=== PATIENT | male | born 1995 | race Two or more races ===

== ENCOUNTER 2020-01-16 00:39 | Emergency (ER) | payer MEDICAID, OTHER ==
[~2020-01-16] VITALS: Ht 172.7 cm; Wt 118.2 kg
[~2020-01-16 00:39] MED LIST: ALBU8HFA IH
[2020-01-16] MEDS ORDERED: IPRATROPIUM BROMIDE 0.5 MG/2.5 ML NEB SOLUTION NEB ONE ×2 (01:45→03:45)
[2020-01-16] MEDS ORDERED: ALBUTEROL SULFATE 2.5 MG/0.5 ML NEB SOLUTION NEB ONE ×2 (01:45→03:45)
[2020-01-16] MEDS ORDERED: IBUPROFEN 600 MG TABLET PO ONE (01:45)
[2020-01-16] MEDS ORDERED: ACETAMINOPHEN 500 MG TABLET PO ONE (01:45)
[2020-01-16] MEDS ORDERED: 0.9% SODIUM CHLORIDE 5 ML NEB SOLUTION NEB ONE ×2 (01:48→03:48)
[2020-01-16] MEDS ORDERED: POLYMYXIN B/TRIMETHOPRIM 10 ML OPHTHALMIC SOLUTION OU ONE (02:00)
[2020-01-16] MEDS ORDERED: ALBUTEROL SULFATE HFA 90 MCG/PUFF 8 GM INHALER IH ONE (03:45)
[2020-01-16 04:24] VITALS: BP 121/77
== END 2020-01-16 04:27 | disposition home or self-care (01) ==
LOC: EMS 00:40
DX: H10.89 Other conjunctivitis (principal); J02.9 Acute pharyngitis, unspecified; B99.9 Unspecified infectious disease; J45.909 Unspecified asthma, uncomplicated
CPT/HCPCS: 87430; 94640; J3535

== ENCOUNTER 2024-07-14 21:22 | Inpatient (IN) | payer MEDICAID, OTHER ==
[~2024-07-14] VITALS: Ht 175.3 cm; Wt 121.0 kg
[~2024-07-14 21:22] MED LIST changes: +ALBU18HF12 IH; -ALBU8HFA IH; +LEVO750T68 PO; +PRED-729 PO
[2024-07-14 22:12] LABS: BASOPHILS % (AUTO) 0.4 % (0.0-2.0); EOSINOPHILS % (AUTO) 1.6 % (1.0-6.0); HEMATOCRIT 48.3 % (41-53); HEMOGLOBIN 15.6 g/dL (13.5-17.5); LYMPHOCYTES # (AUTO) 1.9 K/uL (1.0-4.8); LYMPHOCYTES % (AUTO) 11.3 % (22.0-44.0); MEAN CORPUSCULAR HEMOGLOBIN 27.2 pg (26.0-34.0); MEAN CORPUSCULAR HGB CONC 32.4 G/dL (31.0-37.0); MEAN CORPUSCULAR VOLUME 84 fL (80-100); MONOCYTES # (AUTO) 1.2 K/uL (0.1-1.0); MONOCYTES % (AUTO) 6.8 % (2.0-9.0); NEUTROPHILS # (AUTO) 13.8 K/uL (1.8-7.7); NEUTROPHILS % (AUTO) 79.9 % (40.0-70.0); PLATELET COUNT (AUTO) 245 K/uL (150-450); RED BLOOD CELL COUNT(AUTO) 5.76 MIL/uL (4.50-5.90); RED CELL DISTRIBUTION WIDTH 14.5 % (11.5-14.5); WHITE BLOOD COUNT (AUTO) 17.3 K/uL (4.5-11.0)
[2024-07-14 22:23] LABS: ANION GAP 14 mmol/L (8-16); CALCIUM, TOTAL 8.4 mg/dL (8.8-10.5); CARBON DIOXIDE 23 mmol/L (22-29); CHLORIDE 101 mmol/L (98-107); CREATININE 1.07 mg/dL (0.60-1.30); GLOMERULAR FILTR. RATE CALC > 60 mL/min (>60); GLUCOSE,RANDOM 124 mg/dL (70-110); POTASSIUM 3.5 mmol/L (3.5-5.1); SODIUM SERUM 137 mmol/L (136-145); UREA NITROGEN, BLOOD 7 mg/dL (7-18)
[2024-07-14] MEDS: SODIUM CHLORIDE 0.9% 1,000 ML IV ONE ×2 (22:46→23:59)
[2024-07-14] MEDS: PredniSONE 20 MG TABLET PO ONE (22:46)
[2024-07-14 22:50] VITALS: PULSE 133; RESP 20; O2SAT 97
[2024-07-14] MEDS: ALBUTEROL SULFATE 2.5 MG/0.5 ML NEB SOLUTION NEB ONE (22:51)
[2024-07-14] MEDS: IPRATROPIUM BROMIDE 0.5 MG/2.5 ML NEB SOLUTION NEB ONE (22:52)
[2024-07-14 22:55] VITALS: PULSE 133; RESP 23; O2SAT 94
[2024-07-14] MEDS ORDERED: 0.9% SODIUM CHLORIDE 10 ML SYRINGE IVP PRN (23:00)
[2024-07-14 23:10] VITALS: PULSE 119; RESP 22; O2SAT 100
[2024-07-14] MEDS: CefTRIAXone 1 GM/DEXTROSE 50 ML IV ONE (23:17)
[2024-07-14] MEDS: SODIUM CHLORIDE 0.9% 2,400 ML IV ONE (23:18)
[2024-07-14 23:22] LABS: INR 1.3 (0.9-1.1); PROTHROMBIN TIME 13.7 SEC (9.4-11.6)
[2024-07-14] MEDS ORDERED: ALBUTEROL SULFATE 2.5 MG/0.5 ML NEB SOLUTION NEB PRN (23:45)
[2024-07-14] MEDS ORDERED: ONDANSETRON HCL 4 MG/2 ML VIAL IVP PRN (23:45)
[2024-07-15] MEDS: AZITHROMYCIN 500 MG/NS 250 ML IV SCH (00:07)
[2024-07-15] MEDS: HEPARIN SODIUM,PORCINE 5,000 UNITS/ML VIAL SQ SCH (00:07)
[2024-07-15 00:35] LABS: APPEARANCE,URINE CLEAR (CLEAR); COLOR,URINE YELLOW (YELLOW); GLUCOSE, URINE (UA) NEGATIVE (NEGATIVE); KETONES,URINE NEGATIVE (NEGATIVE); LEUKOCYTE ESTERASE ,URINE NEGATIVE (NEGATIVE); NITRATE,URINE NEGATIVE (NEGATIVE); OCCULT BLOOD,URINE NEGATIVE (NEGATIVE); PROTEIN,URINE 100-200,SEE CONFIRM mg/dL (NEGATIVE); SPECIFIC GRAVITIY, URINE 1.024 (1.003-1.030)
[2024-07-15 00:37] LABS: COVID AG,FIA SOURCE NASAL SWAB; SARS-COV2 (COVID) ANTIGEN,FIA Negative (Negative)
[2024-07-15 00:38] LABS: INFLUENZA TYPE A NEGATIVE FOR TYPE A (NEGATIVE); INFLUENZA TYPE B NEGATIVE FOR TYPE B (NEGATIVE)
[2024-07-15 00:41] LABS: BILIRUBIN,URINE SMALL (NEGATIVE)
[2024-07-15 00:42] LABS: ALCOHOL, URINE DRUG SCREEN NEGATIVE (NEGATIVE); AMPHET/METH SCREEN,URINE NEGATIVE (NEGATIVE); BARBITURATE SCREEN, URINE NEGATIVE (NEGATIVE); BENZODIAZEPINES SCREEN,URINE NEGATIVE (NEGATIVE); CANNABINOID SCREEN,URINE NEGATIVE (NEGATIVE); COCAINE SCREEN,URINE NEGATIVE (NEGATIVE); METHADONE SCREEN, URINE NEGATIVE (NEGATIVE); OPIATE SCREEN,URINE NEGATIVE (NEGATIVE); PHENCYCLIDINE SCREEN,URINE NEGATIVE (NEGATIVE)
[2024-07-15 00:48] LABS: BACTERIA,URINE None Seen /HPF (None Seen); RBC,URINE None Seen /HPF (0-2); SQUAMOUS EPITHELIAL CELL,UR Few /LPF (None Seen); SULFOSALICYLIC ACID,URINE 2+ (Negative); WBC,URINE None Seen /HPF (0-5)
[2024-07-15] MEDS: MethylPREDNISolone SOD SUCC 125 MG/2 ML VIAL IVP SCH (04:54)
[2024-07-15] MEDS ORDERED: IOHEXOL 350 MG/ML 150 ML VIAL ONE (08:33)
[2024-07-15] MEDS ORDERED: SODIUM CHLORIDE 0.9% 100 ML ONE (08:33)
[2024-07-15 09:41] VITALS: BP 144/96; PULSE 92; RESP 20; TEMP 98.3; O2SAT 95
[2024-07-15] MEDS: DOCUSATE SODIUM 100 MG CAPSULE PO SCH (10:01)
[2024-07-15] MEDS: FAMOTIDINE 20 MG TABLET PO SCH (10:01)
[2024-07-15 11:42] VITALS: BP 140/92; PULSE 99; RESP 19; TEMP 98.3; O2SAT 96
[2024-07-15 12:21] LABS: BASOPHILS % (AUTO) 0.1 % (0.0-2.0); EOSINOPHILS % (AUTO) 0 % (1.0-6.0); HEMATOCRIT 46.4 % (41-53); HEMOGLOBIN 15.2 g/dL (13.5-17.5); LYMPHOCYTES # (AUTO) 0.6 K/uL (1.0-4.8); MEAN CORPUSCULAR HEMOGLOBIN 27.4 pg (26.0-34.0); MEAN CORPUSCULAR HGB CONC 32.7 G/dL (31.0-37.0); MEAN CORPUSCULAR VOLUME 84 fL (80-100); MONOCYTES # (AUTO) 0.2 K/uL (0.1-1.0); MONOCYTES % (AUTO) 2.5 % (2.0-9.0); NEUTROPHILS # (AUTO) 6.5 K/uL (1.8-7.7); PLATELET COUNT (AUTO) 227 K/uL (150-450); RED BLOOD CELL COUNT(AUTO) 5.54 MIL/uL (4.50-5.90); RED CELL DISTRIBUTION WIDTH 14.7 % (11.5-14.5); WHITE BLOOD COUNT (AUTO) 7.3 K/uL (4.5-11.0)
[2024-07-15 12:25] LABS: NEUTROPHILS % (AUTO) 89.4 % (40.0-70.0)
[2024-07-15 15:45] VITALS: BP 137/96; PULSE 90; RESP 19; TEMP 98.2; O2SAT 97
[2024-07-15] MEDS: SODIUM CHLORIDE 0.9% 1,000 ML IV ONE (16:39)
[2024-07-15 21:32] VITALS: BP 142/95; PULSE 88; RESP 19; TEMP 97.9; O2SAT 97
[2024-07-16 00:08] VITALS: BP 147/80; PULSE 75; RESP 18; TEMP 98.6; O2SAT 95
[2024-07-16] MEDS: CefTRIAXone 1 GM/DEXTROSE 50 ML IV SCH (00:39)
[2024-07-16 05:03] VITALS: BP 131/96; PULSE 88; RESP 19; TEMP 98.1; O2SAT 97
[2024-07-16 09:22] VITALS: BP 157/116; PULSE 95; RESP 18; TEMP 98.5; O2SAT 90
[2024-07-16 16:50] VITALS: BP 146/90; PULSE 93; RESP 18; TEMP 98.4; O2SAT 97
[2024-07-16 20:11] VITALS: BP 159/97; PULSE 104; RESP 18; TEMP 97.9; O2SAT 97
[2024-07-17] VITALS (9 sets, daily range): BP systolic 132–168; BP diastolic 87–97; PULSE 68–92; RESP 18–20; TEMP 97.9–98.9; O2SAT 95–97
[2024-07-17] MEDS ORDERED: GELATIN SPONGE,ABSORBABLE 12-7 MM TP ONE (08:12)
[2024-07-17 09:27] LABS: EOSINOPHILS % (AUTO) 0.1 % (1.0-6.0); HEMATOCRIT 47.2 % (41-53); LYMPHOCYTES # (AUTO) 0.7 K/uL (1.0-4.8); LYMPHOCYTES % (AUTO) 4.4 % (22.0-44.0); MEAN CORPUSCULAR HEMOGLOBIN 26.9 pg (26.0-34.0); MEAN CORPUSCULAR HGB CONC 31.8 G/dL (31.0-37.0); MEAN CORPUSCULAR VOLUME 85 fL (80-100); MONOCYTES # (AUTO) 0.3 K/uL (0.1-1.0); NEUTROPHILS # (AUTO) 15.1 K/uL (1.8-7.7); PLATELET COUNT (AUTO) 220 K/uL (150-450); RED BLOOD CELL COUNT(AUTO) 5.58 MIL/uL (4.50-5.90); RED CELL DISTRIBUTION WIDTH 15.1 % (11.5-14.5); WHITE BLOOD COUNT (AUTO) 16.1 K/uL (4.5-11.0)
[2024-07-17 09:35] LABS: NEUTROPHILS % (AUTO) 93.5 % (40.0-70.0)
[2024-07-17 09:43] LABS: ANION GAP 12 mmol/L (8-16); CALCIUM, TOTAL 8.5 mg/dL (8.8-10.5); CARBON DIOXIDE 23 mmol/L (22-29); CHLORIDE 104 mmol/L (98-107); CREATININE 0.83 mg/dL (0.60-1.30); GLOMERULAR FILTR. RATE CALC > 60 mL/min (>60); GLUCOSE,RANDOM 115 mg/dL (70-110); INR 1.1 (0.9-1.1); SODIUM SERUM 139 mmol/L (136-145); UREA NITROGEN, BLOOD 11 mg/dL (7-18)
[2024-07-17] MEDS: ACETAMINOPHEN 325 MG TABLET PO PRN (14:57)
[2024-07-17] MEDS: MethylPREDNISolone SOD SUCC 40 MG/ML VIAL IVP SCH (17:28)
[2024-07-17] MEDS ORDERED: HYDROCODONE/ACETAMINOPHEN 5-325 MG TABLET PO PRN (17:45)
[2024-07-17] MEDS: HYDROCODONE/ACETAMINOPHEN 5-325 MG TABLET PO PRN (17:57)
[2024-07-18] VITALS (7 sets, daily range): BP systolic 134–156; BP diastolic 76–97; PULSE 53–81; RESP 17–18; TEMP 97.7–98.4; O2SAT 94–98
[2024-07-18] MEDS: MethylPREDNISolone SOD SUCC 40 MG/ML VIAL IVP SCH (21:58)
[2024-07-19 03:54] VITALS: BP 142/74; PULSE 54; RESP 18; TEMP 97.7; O2SAT 96
[2024-07-19 07:26] VITALS: BP 151/98; PULSE 58; RESP 18; TEMP 98.2; O2SAT 97
[2024-07-19 10:02] LABS: BASOPHILS % (AUTO) 0.1 % (0.0-2.0); EOSINOPHILS % (AUTO) 0 % (1.0-6.0); HEMATOCRIT 47.1 % (41-53); LYMPHOCYTES % (AUTO) 6.5 % (22.0-44.0); MEAN CORPUSCULAR HEMOGLOBIN 27.1 pg (26.0-34.0); MEAN CORPUSCULAR HGB CONC 31.9 G/dL (31.0-37.0); MEAN CORPUSCULAR VOLUME 85 fL (80-100); MONOCYTES % (AUTO) 6.5 % (2.0-9.0); NEUTROPHILS # (AUTO) 12.9 K/uL (1.8-7.7); PLATELET COUNT (AUTO) 208 K/uL (150-450); RED BLOOD CELL COUNT(AUTO) 5.56 MIL/uL (4.50-5.90); RED CELL DISTRIBUTION WIDTH 14.9 % (11.5-14.5); WHITE BLOOD COUNT (AUTO) 14.8 K/uL (4.5-11.0)
[2024-07-19 10:16] LABS: NEUTROPHILS % (AUTO) 86.9 % (40.0-70.0)
[2024-07-19 10:29] LABS: ANION GAP 10 mmol/L (8-16); CALCIUM, TOTAL 8.3 mg/dL (8.8-10.5); CARBON DIOXIDE 27 mmol/L (22-29); CHLORIDE 100 mmol/L (98-107); CREATININE 0.84 mg/dL (0.60-1.30); GLOMERULAR FILTR. RATE CALC > 60 mL/min (>60); GLUCOSE,RANDOM 88 mg/dL (70-110); POTASSIUM 4.1 mmol/L (3.5-5.1); SODIUM SERUM 137 mmol/L (136-145); UREA NITROGEN, BLOOD 12 mg/dL (7-18)
[2024-07-19 11:33] VITALS: BP 141/85; PULSE 58; RESP 18; TEMP 98.6; O2SAT 96
[2024-07-19 11:33] LABS: SPECIMENTYPE,BODY FLUID PLEURAL
[2024-07-19 12:13] LABS: SPECIMENTYPE,BODY FLUID ASCITES
[2024-07-19 13:16] LABS: APPEARANCE,SPUN,BODY FLUID CLEAR (CLEAR); APPEARANCE,UNSPUN,BODY FLUID HAZY (CLEAR)
[2024-07-19 13:17] LABS: BASOPHILS,BODY FLUID 0 %; COLOR,BODY FLUID YELLOW (LT YELLOW); EOSINOPHILS,BF (ANAL) 0 %; LYMPHOCYTES,BODY FLUID 73 %; MONOCYTES,BODY FLUID 5 %; NEUTROPHILS,BODY FLUID 5 %; OTHER CELLS,BODY FLUID 17; TOTAL VOLUME,BODY FLUID 600 mL; WBC, BODY FLUID 49 /cu. mm.
[2024-07-19 13:18] LABS: PH, BODY FLUID 7
[2024-07-19 14:50] LABS: APPEARANCE,SPUN,BODY FLUID CLEAR (CLEAR); APPEARANCE,UNSPUN,BODY FLUID HAZY (CLEAR); COLOR,BODY FLUID YELLOW (LT YELLOW)
[2024-07-19 14:51] LABS: BASOPHILS,BODY FLUID 0 %; EOSINOPHILS,BF (ANAL) 0 %; LYMPHOCYTES,BODY FLUID 73 %; MONOCYTES,BODY FLUID 5 %; NEUTROPHILS,BODY FLUID 17 %; OTHER CELLS,BODY FLUID 5; TOTAL VOLUME,BODY FLUID 1150 mL; WBC, BODY FLUID 159 /cu. mm.
[2024-07-19 16:42] VITALS: BP 152/89; PULSE 72; RESP 18; TEMP 98; O2SAT 97
[2024-07-19 20:40] VITALS: BP 143/85; PULSE 67; RESP 18; TEMP 98.5; O2SAT 97
[2024-07-19] MEDS ORDERED: SODIUM CHLORIDE 0.9% 500 ML IV ONE (23:21)
[2024-07-20 06:02] VITALS: BP 135/79; PULSE 55; RESP 18; TEMP 97.9; O2SAT 98
[2024-07-20 07:43] VITALS: BP 148/84; PULSE 68; RESP 18; TEMP 97.9; O2SAT 98
[2024-07-20] MEDS: PredniSONE 20 MG TABLET PO SCH (08:04)
[2024-07-20 12:06] LABS: TOTAL PROTEIN,BODY FLUID,REF 3.4 g/dL
[2024-07-20 12:06] LABS: URIC ACID, BODY FLUID,REF 4.6 mg/dL
[2024-07-20 15:56] VITALS: BP 132/78; PULSE 70; RESP 18; TEMP 98.5; O2SAT 96
[2024-07-20 20:11] VITALS: BP 138/91; PULSE 72; RESP 20; TEMP 97.6; O2SAT 97
[2024-07-21 04:44] VITALS: BP 134/97; PULSE 60; RESP 20; TEMP 97.8; O2SAT 99
[2024-07-21 08:36] VITALS: BP 135/90; PULSE 72; RESP 20; TEMP 97.7; O2SAT 99
[2024-07-21 15:23] VITALS: BP 119/65; PULSE 67; RESP 20; TEMP 97.7; O2SAT 97
[2024-07-21 19:59] VITALS: BP 140/100; PULSE 77; RESP 20; TEMP 97.8; O2SAT 98
[2024-07-22 04:52] VITALS: BP 133/84; PULSE 65; RESP 19; TEMP 97.7; O2SAT 98
[2024-07-22 08:22] VITALS: BP 128/66; PULSE 60; RESP 18; TEMP 97.9; O2SAT 100
[2024-07-22 16:10] VITALS: BP 134/98; PULSE 67; RESP 18; TEMP 98.3; O2SAT 97
[2024-07-22 19:39] VITALS: BP 126/70; PULSE 73; RESP 18; TEMP 98.4; O2SAT 97
[2024-07-23 04:48] VITALS: BP 139/88; PULSE 65; RESP 18; TEMP 97.7; O2SAT 98
[2024-07-23 07:50] VITALS: BP 130/76; PULSE 65; RESP 18; TEMP 97.8; O2SAT 100
[2024-07-23 16:18] VITALS: BP 144/87; PULSE 88; RESP 18; TEMP 98.2; O2SAT 100
[2024-07-23 19:50] VITALS: BP 120/64; PULSE 88; RESP 18; TEMP 98.3; O2SAT 93
[2024-07-24] VITALS (10 sets, daily range): BP systolic 122–138; BP diastolic 53–87; PULSE 56–93; RESP 17–20; TEMP 97.6–98.3; O2SAT 97–100
[2024-07-24] MEDS ORDERED: FentaNYL CITRATE PF 100 MCG/2 ML VIAL ONE (10:09)
[2024-07-24] MEDS ORDERED: LIDOCAINE/PF 1% 30 ML VIAL ONE (10:10)
[2024-07-24] MEDS ORDERED: MIDAZOLAM HCL 2 MG/2 ML VIAL ONE (10:10)
[2024-07-24] MEDS: FentaNYL CITRATE PF 100 MCG/2 ML VIAL IVP ONE (15:48)
[2024-07-24] MEDS: MIDAZOLAM HCL 2 MG/2 ML VIAL IVP ONE (15:49)
[2024-07-25 04:42] VITALS: BP 134/80; PULSE 81; RESP 18; TEMP 97.9; O2SAT 96
[2024-07-25 08:10] VITALS: BP 133/96; PULSE 89; RESP 18; TEMP 97.7; O2SAT 99
[2024-07-25 17:31] VITALS: BP 139/78; PULSE 93; RESP 19; TEMP 97.6; O2SAT 95
[2024-07-25 19:30] VITALS: BP 143/76; PULSE 92; RESP 20; TEMP 98.4; O2SAT 97
[2024-07-26 04:40] VITALS: BP 127/66; PULSE 70; RESP 18; TEMP 97.8; O2SAT 98
[2024-07-26 08:25] VITALS: BP 126/79; PULSE 92; RESP 18; TEMP 98.1; O2SAT 95
[2024-07-26 15:38] VITALS: BP 142/85; PULSE 78; RESP 18; TEMP 97.8; O2SAT 93
== END 2024-07-26 17:53 | disposition home or self-care (01) | DRG 137 ==
LOC: EMS 21:22 → EDH 07-15 00:51 → 5S 07-15 08:39 → 4E 07-19 17:45
PROVIDERS: ADMIT Internal Medicine; ATTEND Internal Medicine
PROC: 0W993ZZ Drainage of Right Pleural Cavity, Percutaneous Approach (ICD-10-PCS; principal; 2024-07-19)
PROC: 0W9G3ZZ Drainage of Peritoneal Cavity, Percutaneous Approach (ICD-10-PCS; 2024-07-19)
PROC: 0FB23ZX Excision of Left Lobe Liver, Percutaneous Approach, Diagnostic (ICD-10-PCS; 2024-07-24)
DX: J15.69 Pneumonia due to other Gram-negative bacteria (principal); R18.8 Other ascites; J45.901 Unspecified asthma with (acute) exacerbation; C22.0 Liver cell carcinoma; K76.89 Other specified diseases of liver; J90 Pleural effusion, not elsewhere classified; Z20.822 Contact with and (suspected) exposure to COVID-19; E66.9 Obesity, unspecified; Z68.39 Body mass index [BMI] 39.0-39.9, adult; Z82.49 Family history of ischemic heart disease and other diseases of the circulatory system
CPT/HCPCS: 32555; 47000; 49083; 71045; 71250; 71260; 72193; 74160; 76942; 80048; 80307; 81001; 81002; 82105; 82465; 82570; 82945; 83605; 83615; 83986; 84145; 84157; 84478; 84560; 85025; 85610; 87015; 87040; 87075; 87081; 87101; 87184; 87205; 87206; 87804; 88108; 88185; 88189; 88305; 88307; 88313; 88341; 88342; 89051; 93005; 94640; 99285; G0378; J0456; J0696; J1644; J2250; J2919; J3010; J3490; J7030; J7040; J7050; 36415-L1; 36415-TC; 87070; J7613